=== PATIENT | male | born 1990 | race Caucasian/White ===

== ENCOUNTER 2019-08-26 17:32 | Emergency (ER) | payer BC, OTHER ==
[~2019-08-26] VITALS: Ht 165.1 cm; Wt 86.4 kg
[2019-08-26 20:07] VITALS: BP 132/80
== END 2019-08-26 20:16 | disposition home or self-care (01) ==
LOC: EMS 17:32
DX: J06.9 Acute upper respiratory infection, unspecified (principal); B97.89 Other viral agents as the cause of diseases classified elsewhere